=== PATIENT | male | born 1975 | race Caucasian/White ===

== ENCOUNTER 2017-02-11 15:09 | Observation (INO) ==
--- NOTE | 2017-02-11 15:48 | Emergency Department Note ---
Recheck HPI - General Source: patient Mode of arrival: ambulatory Limitations: no limitations <Osiel Cai - Last Filed: 02/11/17 16:11> <Alireza Carrizales - Last Filed: 02/12/17 07:53> - General Chief Complaint: Recheck/Abnormal Lab/Rx Stated Complaint: "I have high potassium" Time Seen by Provider: 02/11/17 15:18 - History of Present Illness HPI Narrative: Patient is 41-year-old male with a history of nephrogenic diabetes insipidus, and history of recurrent hypokalemia secondary to his treatment. He presents today following labs taken by his primary care provider that demonstrated hypokalemia, thrombocytosis, and a high white count. Patient's potassium was 2.6. Patient was advised by his PCP to come to the ER for evaluation and possible admission for correction of his electrolyte derangement. Patient states he was feeling a little tired but otherwise asymptomatic.no fevers chills sweats, patient does admit to having some red blood in his stools this morning, which has been recurrent for him throughout his life prior workups have demonstrated hemorrhoids, patient was encouraged to follow up with his primary care for possible colonoscopy since he is significantly over do. ( Osiel Cai) - Related Data Home Medications Medication Instructions Recorded Confirmed Potassium 40 mg PO DAILY 02/11/17 02/12/17 Spironolactone [Aldactone] 50 mg PO QDAY 02/11/17 02/12/17 Hydrochlorothiazide [Oretic] 2 cap PO DAILY 02/12/17 02/12/17 Previous Rx's Medication Instructions Recorded febuxostat 40 mg tablet 40 mg PO BID #28 tab 01/24/15 Allergies Allergy/AdvReac Type Severity Reaction Status Date / Time duloxetine [From Cymbalta] Allergy Unknown Rash Verified 02/11/17 15:12 aspirin AdvReac Intermediate Verified 02/11/17 15:12 Review of Systems All systems ED: reviewed and negative except as stated. <Osiel Cai - Last Filed: 02/11/17 16:11> Past Medical History - Past Medical History Source: other (patient) Medical history: Reports: other (nephrogenic diabetes insipidus) Surgical history ED: Reports: non-contributory - Social History smoking status: Former smoker Alcohol use: Reports: None Last drink: unknown (2008) Drug use: Reports: cocaine (previous, clean since 2008) <Tl Caih - Last Filed: 02/11/17 16:11> Physical Exam - General Limitations: no limitations General appearance: alert, in no apparent distress, anxious - Head Head exam: atraumatic, normocephalic - Eye Eye exam: Present: normal appearance, PERRL, EOMI - Neck Neck exam: Present: normal inspection, trachea midline - Chest Chest inspection: Present: normal inspection, symmetric chest wall rise. Absent : tenderness - Respiratory Respiratory exam: Present: normal lung sounds bilaterally. Absent: wheezes, stridor, accessory muscle use - Cardiovascular Cardiovascular exam: Present: regular rate, normal rhythm, tachycardia. Absent : systolic murmur, diastolic murmur, rubs, gallop, JVD - Abdominal Exam Abdominal exam: Present: soft, normal bowel sounds. Absent: distention, tenderness, guarding, rebound, rigidity - Rectal Exam Rectal exam: Present: deferred - Skin Skin exam: Present: warm, dry, intact <Osiel Cai - Last Filed: 02/11/17 16:11> Vital Signs Temperature 97.9 F 02/11/17 15:10 Pulse Rate 107 H 02/11/17 15:10 Respiratory Rate 20 02/11/17 15:10 Blood Pressure 170/94 02/11/17 15:10 Pulse Oximetry (%) 98 02/11/17 15:10 Temperature 97.9 F 02/12/17 07:24 Pulse Rate 70 02/12/17 07:24 Respiratory Rate 16 02/12/17 07:24 Blood Pressure 137/99 02/12/17 07:24 Pulse Oximetry (%) 98 02/12/17 07:24 Recheck/Abnormal Lab/Rx - Lab Data Result diagrams: 02/11/17 15:43 <Osiel Cai - Last Filed: 02/11/17 16:11> - Lab Data Result diagrams: 02/12/17 04:20 02/12/17 06:56 <Alireza Carrizales - Last Filed: 02/12/17 07:53> - Lab Data Lab Results 02/11/17 02/11/17 Range/Units 15:43 15:43 WBC 13.9 H (4.5-11.0) K/mcL RBC 4.21 L (4.50-5.90) M/mcL Hgb 12.9 L (13.5-16.5) g/dL Hct 38.0 L (41.0-55.0) % MCV 90.4 (80.0-100.0) fL MCH 30.6 (26.0-34.0) pg MCHC 33.9 (31.0-36.0) g/dL RDW 13.3 (11.5-14.5) % Plt Count 682 H (140-440) K/mcL MPV 6.7 L (7.4-10.4) fL Total Counted 100 Seg Neutrophils % 51 (38-78) % Band Neutrophils % Not Reportable Lymphocytes % 33 (15-49) % Monocytes % (Manual) 12 (1-12) % Eosinophils % (Manual) 4 (0-7) % Platelet Estimate Increased A (NORMAL) RBC Morphology Normal (NORMAL) Sodium 135 (133-145) mmol/L Potassium 2.6 L* (3.3-5.1) mmol/L Chloride 91 L (96-108) mmol/L Carbon Dioxide 28 (22-30) mmol/L Anion Gap 16.0 (8-16) BUN 29 H (6-20) mg/dl Creatinine 1.9 H (0.7-1.2) mg/dl GFR Calculation 42 Glucose 112 H (70-105) mg/dL Calcium 9.0 (8.6-10.4) mg/dl Magnesium 1.4 L (1.6-2.5) mg/dL Total Bilirubin 0.2 (0.0-1.0) mg/dL AST 10 (0-37) U/l ALT 11 (0-40) U/l Alkaline Phosphatase 69 (39-117) U/L Total Protein 6.7 (5.9-8.4) gm/dL Albumin 3.5 (3.2-5.2) gm/dL Globulin 3.2 (2.2-3.7) gm/dL Albumin/Globulin Ratio 1.1 (1.0-2.3) Disposition <Osiel Cai - Last Filed: 02/11/17 16:11> Pt seen by POWER REACTOR SUPERVISOR/PA only: No <Alireza Carrizales - Last Filed: 02/12/17 07:53> Clinical Impression: Hypokalemia, OMAIRA Disposition: Xfer As Outpt/Obs ([facility]) Condition: Fair
[2017-02-11 16:55] LABS: ALT/SGPT 11 U/l (0-40); Albumin 3.5 gm/dL (3.2-5.2); Albumin/Globulin Ratio 1.1 (1.0-2.3); Alkaline Phosphatase 69 U/L (39-117); Blood Urea Nitrogen 29 mg/dl (6-20); Magnesium 1.4 mg/dL (1.6-2.5)
[2017-02-11] MEDS ORDERED: POTASSIUM CHLORIDE 40 MEQ in DEXTROSE 5% IN WATER 500 ML IV ONE (17:22)
--- NOTE | 2017-02-11 17:27 | Emergency Department Note ---
ED Note Addendum Note Addendum: I physically examined this patient and discussed his case with the medical student. He has significant hypokalemia. He will be admitted to the hospital by the hospitalist Dr. Morales who I also spoke with directly.
[2017-02-11] MEDS ORDERED: POTASSIUM CHLORIDE 20 MEQ/10 ML VIAL IV ONE (17:45)
[2017-02-11] MEDS ORDERED: MAGNESIUM SULFATE 2 GM/50 ML BAG IV ONE (18:56)
[2017-02-11] MEDS ORDERED: traZODone HCL 50 MG TABLET PO PRN (18:56)
[2017-02-11] MEDS ORDERED: NALOXONE HCL 0.4 MG/ML VIAL IV PRN (18:56)
[2017-02-11] MEDS ORDERED: MAGNESIUM HYDROXIDE 30 ML ORAL.SUSP PO PRN (18:56)
[2017-02-11] MEDS ORDERED: ONDANSETRON 4 MG/2 ML VIAL IV PRN (18:56)
[2017-02-11] MEDS ORDERED: POTASSIUM CHLORIDE 20 MEQ PACKET PO ONE (18:56)
[2017-02-11] MEDS ORDERED: ACETAMINOPHEN 325 MG TABLET PO PRN (18:56)
--- NOTE | 2017-02-11 19:10 | Internal Med History&Physical ---
Medical - H&P: HPI Patient information: Note initiated : 02/11/17 at 7:04 pm Service Date, if different from initiated Date: [] Patient: Fercho Arciniega 41 y/o M admitted on for "I have high potassium". Chief Complaint: [] History of present illness: Mr. Arciniega is a 41 year old MALE history of congenital nephrogenic diabetes insipidus, chronic hypokalemia presents to the emergency room after being sent thereby his physician for low potassium. The patient's potassium level was 2.6 in the labs they had done. The patient is asymptomatic. The patient's repeat labs in the ER shows that his potassium is 2.6, creatinine of 1.9, magnesium of 1.4. The patient had nonspecific EKG changes. No previous EKGs to compare. He was admitted to the hospital for management of severe hypokalemia. The patient has a history of nephrogenic diabetic insipidus, takes hydrochlorothiazide, takes potassium 40 mEq per day. He notes that last time this blood work was done was a few months ago and his potassium level was low, but okay. He has been dealing with chronically low potassium for a very long time. According to the patient, his electromechanical assembler has stopped his hydrochlorothiazide and started him on Aldactone. He has not yet taken the full stools of Aldactone. He is supposed to see his kidney doctor in a week's time. The patient denies any history of nausea, vomiting, diarrhea, decreased by mouth intake, to explain the sudden drop in potassium. The patient, however, notes that he had a flare up of gout a couple weeks ago and had taken a course of prednisone Prednisone does have kaliuretic properties and this may have exacerbated the patient's hypokalemia. Patient will be admitted to the hospital on telemetry bed for potassium replacement Review of systems: CONSTITUTIONAL: No weight loss, fever, chills, weakness or fatigue. HEENT: Eyes: No visual loss, blurred vision, double vision or yellow sclerae. Ears, Nose, Throat: No hearing loss, sneezing, congestion, runny nose or sore throat. SKIN: No rash or itching. CARDIOVASCULAR: No chest pain, chest pressure or chest discomfort. No palpitations or edema. RESPIRATORY: No shortness of breath, cough or sputum. GASTROINTESTINAL: No nausea, vomiting or diarrhea or constipation. No abdominal pain or blood in stools No Erika. GENITOURINARY: Denies Burning on urination. Blood in urine, or foul smelling urine NEUROLOGICAL: No headache, dizziness, syncope, paralysis, tremors, numbness or tingling in the extremities. No change in bowel or bladder control. MUSCULOSKELETAL: No muscle, back pain, joint pain or stiffness. HEMATOLOGIC: No bleeding or bruising. No enlarged nodes PSYCHIATRIC: No depression or anxiety. ENDOCRINOLOGIC: No reports of sweating, cold or heat intolerance. No polyuria or polydipsia. ALLERGIES: No hives, eczema or rhinitis. Skin: No rash, no jaundice, cyanosis or pallor. . Medical - H&P: [facility] Medical history: Medical History (Last Updated 02/11/17 @ 18:36 by Phyllis Vargas RN) Arthritis of multiple sites (Acute 08/18/14) CKD (chronic kidney disease), stage II (Acute 06/23/14) Chronic low back pain (Acute 08/18/14) Chronic low back pain (Acute) Gout (Acute 06/23/14) Gout (Acute) Hypertension, essential (Acute 10/19/14) Hypokalemia (Acute 01/03/15) Nephrogenic diabetes insipidus (Acute) Numbness and tingling (Acute 11/17/14) Painless hematuria (Acute 10/19/14) Sprain and strain of wrist (Acute) Pertinent family history: significant for nephrogenic diabetes mellitus and his other brother as well as his uncles. He has had workup done for this and it seems based on discussion with the patient as well as his father and the patient has a genetic. Of nephrogenic diabetic insipidus. 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 Medical - H&P: Meds Home Medications Medication Instructions Recorded Confirmed Type febuxostat 40 mg tablet 40 mg PO BID #28 tab 01/24/15 02/11/17 Rx Potassium 20 mg PO BID 02/11/17 02/11/17 History Spironolactone [Aldactone] 50 mg PO QDAY 02/11/17 02/11/17 History Allergies Allergy/AdvReac Type Severity Reaction Status Date / Time duloxetine [From Cymbalta] Allergy Unknown Rash Verified 02/11/17 15:12 aspirin AdvReac Intermediate Verified 02/11/17 15:12 Medical - H&P: Exam - Constitutional Vitals: Temp Pulse Resp BP Pulse Ox 97.9 F 107 H 15 129/94 98 02/11/17 15:10 02/11/17 15:10 02/11/17 18:22 02/11/17 18:02 02/11/17 15:10 Exam: GENERAL: The patient is a well-developed, well-nourished in no apparent distress. Is alert and oriented x3. VITAL SIGNS: Reviewed and as noted elsewhere. HEENT: Head is normocephalic and atraumatic. Extraocular muscles are intact. Pupils are equal, round, and reactive to light. Nares appeared normal. Mouth appears any without lesions. Mucous membranes are moist. NECK: Normal to inspection, Supple, No lymphadenopathy or thyromegaly. LUNGS: Air entry equal on both sides, no wheezing, crackles or rhonchi noted. No accessory muscles of respiration HEART: Regular rate and rhythm normal, S1 and S2 heard, no Gallop, S3 or Rub Noted, No Gross murmur heard. ABDOMEN: Soft, nontender, and nondistended. Positive bowel sounds. No hepatosplenomegaly was noted. EXTREMITIES: No cyanosis, clubbing, rash, lesions or edema. NEUROLOGIC: Cranial nerves II through XII are grossly intact. Motor and Sensory System Grossly Intact PSYCHIATRIC: Normal affect, Normal Mood. Appropriate Behavior. SKIN: No ulceration or wounds noted, No jaundice, No rash noted. Medical - H&P: Reslt - Labs CBC & Chem 7: 02/11/17 15:43 02/11/17 15:43 Labs: BMP 02/11/17 15:43 Sodium 135 Potassium 2.6 L* Chloride 91 L Carbon Dioxide 28 BUN 29 H Creatinine 1.9 H Glucose 112 H Calcium 9.0 Liver Function 02/11/17 Range/Units 15:43 Total Bilirubin 0.2 (0.0-1.0) mg/dL AST 10 (0-37) U/l ALT 11 (0-40) U/l Alkaline Phosphatase 69 (39-117) U/L Albumin 3.5 (3.2-5.2) gm/dL Medical - H&P: A/P - Narrative A/P Narrative: A/P Nephrogenic DI: congenital, follows with electromechanical assembler in [place]. Acute Hypokalemia: K was 2.6, replace IV and oral, give 40IV and 40 oral, monitor on tele for now. NO cardiac symptoms reported Acute Hypomagnesemia: Treat with IV mag sulphate 2gms, check in AM HTN: On Aldactone, started by electromechanical assembler, will start this dose in AM CKD: creat is 1.9, has ckd, slighly worse than baseline, Gout: continue uloric, s/p recent acute flare up. DVT Regular diet Full code.
[2017-02-11 19:11] LABS: Mean Cell Volume 90.4 fL (80.0-100.0); Mean Corpuscular HGB Conc 33.9 g/dL (31.0-36.0); Mean Corpuscular Hemoglobin 30.6 pg (26.0-34.0); Platelet Count 682 K/mcL (140-440); RBC 4.21 M/mcL (4.50-5.90); Red Cell Distribution Width 13.3 % (11.5-14.5)
[2017-02-11 19:51] LABS: Eosinophils % (Manual) 4 % (0-7); Lymphocytes % 33 % (15-49); Monocytes % (Manual) 12 % (1-12); Platelet Estimate INCREASED (NORMAL); RBC Morphology NORMAL (NORMAL); Segmented Neutrophils % 51 % (38-78)
[2017-02-11] MEDS: HYDROcodone/APAP 5/325MG TABLET PO PRN (21:28)
[2017-02-11] MEDS: 0.9 % SODIUM CHLORIDE 10 ML SYRINGE IV SCH (21:29)
[2017-02-11] MEDS: Febuxostat [Uloric] 40 MG PO SCH (21:29)
[2017-02-11] MEDS: 0.9 % SODIUM CHLORIDE 1,000 ML IV SCH (21:47)
[2017-02-11] MEDS ORDERED: PROMETHAZINE 50 MG/ML AMPUL IM ONE (23:24)
[2017-02-11] MEDS ORDERED: HYDROmorphone 2 MG/ML SYRINGE IV PRN (23:24)
[2017-02-11] MEDS ORDERED: HYDROmorphone 2 MG/ML SYRINGE ONE (23:43)
[2017-02-12 03:23] LABS: Appearance,Urine CLEAR; Bacteria,Urine 0 /hpf (0); Bilirubin,Urine NEG (NEG); Color,Urine STRAW; Glucose,Urine (UA) NEGATIVE (NEG); Leukocyte Esterase,Urine NEG /uL (NEG); Mucus,Urine FEW /hpf (0); Nitrate,Urine NEG (NEG); Protein,Urine 100 mg/dL (NEG); Specific Gravity,Urine 1.006 (1.000-1.035); Urine Blood 0.2 mg/dL (<0.03); Urine RBC 5 /hpf (0-1); Urine Squamous Epithelial Cell 0 /hpf (0-4); Urine WBC < 1 /hpf (0-4); Urobilinogen,Urine NEG (NEG)
[2017-02-12 05:39] LABS: Basophils # (Auto) 0 K/mcL (0.0-0.3); Basophils % (Auto) 0.3 % (0.0-2.0); Eosinophils # (Auto) 0.2 K/mcL (0.0-0.7); Granulocytes % (Auto) 75.5 % (38.0-78.0); Lymphocytes # (Auto) 2.6 K/mcL (1.5-4.8); Lymphocytes % (Auto) 16.2 % (15.5-49.0); Mean Cell Volume 90.3 fL (80.0-100.0); Mean Corpuscular HGB Conc 34.2 g/dL (31.0-36.0); Mean Corpuscular Hemoglobin 30.9 pg (26.0-34.0); Monocytes # (Auto) 1.1 K/mcL (0.1-0.9); Platelet Count 591 K/mcL (140-440); RBC 3.86 M/mcL (4.50-5.90); Red Cell Distribution Width 13.1 % (11.5-14.5)
[2017-02-12] MEDS ORDERED: HYDROmorphone 2 MG/ML SYRINGE ONE (05:59)
[2017-02-12] MEDS: 0.9 % SODIUM CHLORIDE 10 ML SYRINGE IV SCH ×2 (06:01→14:45)
[2017-02-12] MEDS: 0.9 % SODIUM CHLORIDE 1,000 ML IV SCH ×2 (06:01→16:39)
[2017-02-12 07:51] LABS: ALT/SGPT 8 U/l (0-40); Albumin 3.2 gm/dL (3.2-5.2); Albumin/Globulin Ratio 1.1 (1.0-2.3); Alkaline Phosphatase 60 U/L (39-117); Bilirubin,Direct < 0.2 mg/dL (0.0-0.3); Blood Urea Nitrogen 27 mg/dl (6-20); Gamma Glutamyl Transpeptidase 39 U/L (8-61); Magnesium 1.8 mg/dL (1.6-2.5); Uric Acid 6.7 mg/dL (2.5-8.0)
[2017-02-12] MEDS ORDERED: MAGNESIUM SULFATE 2 GM/50 ML BAG IV ONE (08:01)
[2017-02-12] MEDS ORDERED: POTASSIUM CHLORIDE 20 MEQ PACKET PO ONE (08:01)
[2017-02-12] MEDS: Febuxostat [Uloric] 40 MG PO SCH (08:48)
[2017-02-12] MEDS: HYDROcodone/APAP 5/325MG TABLET PO PRN (08:55)
[2017-02-12] MEDS ORDERED: SPIRONOLACTONE 25 MG TABLET PO SCH (09:00)
--- NOTE | 2017-02-12 12:53 | Cat Scan Report ---
CLINICAL INFORMATION: Right flank pain COMPARISON: None. TECHNIQUE: 2.5 mm helical slices were obtained from the mid heart through the subtrochanteric regions. Following reconstruction, 2.5 mm sagittal, coronal and axial reformatted images were processed and reviewed at bone, lung and soft tissue windows. FINDINGS: There is atrophy of the right kidney: 8.1 x 5.2 cm with compensatory hypertrophy of the left kidney: 13 x 5.5 cm. There is scattered cortical scarring seen in the right kidney. There are no evidence of stone or hydronephrosis. Lung bases show no abnormality - no effusion. Visualized heart is normal. Images should the abdomen show the noncontrasted gallbladder and bile ducts, liver, both adrenal glands, spleen, pancreas and aorta to be normal in size, configuration and attenuation without focal lesion. Sigmoid diverticulosis is noted, but the remainder of the colon appendix small bowel stomach are grossly normal. There is no free air, free fluid and no adenopathy. Images should the pelvis show moderate distention of urinary bladder. Bone windows show no osseous abnormality IMPRESSION: 1. No evidence of stone or hydronephrosis. 2. Atrophy of the right kidney with scattered parenchymal scarring. Mild compensatory hypertrophy left kidney. Interpreted and Authenticated by: Everett Reynaga 02/12/17
[2017-02-12 13:36] LABS: Blood Urea Nitrogen 25 mg/dl (6-20)
[2017-02-12] MEDS ORDERED: POTASSIUM CHLORIDE 20 MEQ TABLET PO ONE ×2 (13:37→13:45)
[2017-02-12] MEDS ORDERED: LIDOCAINE 5% OINT TUBE 35GM TOPICAL ONE (13:45)
[2017-02-12] MEDS ORDERED: POTASSIUM CHLORIDE 20 MEQ TABLET PO SCH (17:30)
--- NOTE | 2017-02-12 19:21 | Discharge Summary ---
Medical - DS: Prov Patient information: Note initiated : 02/12/17 at 7:18 pm Service Date, if different from initiated Date: [] Patient: Fercho Arciniega 41 y/o M admitted on 02/11/17 for "I have high potassium "/Hypokalemia, OMAIRA. Chief Complaint: [] Date of admission: 02/11/17 18:33 Discharge date: 02/12/17 Primary care physician: Dorian Sampson Admitting clinician: Papo Morales Discharging clinician: Papo Morales Medical - DS: Meds - Discharge Medications Prescriptions: Lidocaine 5% Oint 1 dose TOPICAL TID #1 tube Potassium Chloride [Kdur] 40 meq PO BIDCC #40 tablet Active and Home Medications: Home Medications febuxostat 40 mg tablet 40 mg PO BID #28 tab 01/24/15 [Rx Confirmed 02/12/17 Last Taken 02/11/17 40 mg] Potassium 40 mg PO DAILY 02/11/17 [History Confirmed 02/12/17 Last Taken 40 mEq] Spironolactone [Aldactone] 50 mg PO QDAY 02/11/17 [History Confirmed 02/12/17 Last Taken Unknown] Hydrochlorothiazide [Oretic] 2 cap PO DAILY 02/12/17 [History Confirmed Last Taken Unknown] Medical - DS: Hosp Hospital course: Mr. Arciniega is a 41 year old Male with congenital nephrogenic diabetes insipidus, presented to the ER after being ent here for low potassium. His potassium was 2.6, he had no other complaints. He had no weakness, no palpitations, no dizziness. His EKG was unremarkable, he was admitted for management of acute hypokalemia. Hypokalemia-patient has chronic hyperkalemia issues. on reviewing his chart He' s always had potassium around 3 he had recently taken a dose of prednisone for management of acute gout. He was also on hydrochlorothiazide for management of his diabetes insipidus. His fire observer has stopped his hydrochlorothiazide and the patient was supposed to be started on spironolactone. The patient was aggressively treated with IV and oral potassium. His medications for diuretics changed from hydrochlorothiazide to Aldactone while in the hospital. His potassium was 3.0 at the time of discharge. The patient has been advised to take increased dose of potassium. He will take 40 mEq twice a day and he has a follow-up with his nephrologistin 6 days. He has been advised to check his potassium level at the end of high to 6 days. Acute on chronic renal failure-etiology uncertain, likely decreased by mouth intake. Creatinine was 1.9 on presentation. At discharge it is 1.5, which is near his baseline. The patient had back pain while in the hospital, has been a chronic issue for him, he has been prescribed a lidocaine ointment daily to the back pain. Advised to follow with PCP for further management. CT scan of the abdomen and pelvis done without contrast did not reveal any renal stones. Discharge diagnosis: hypokalemia, acute on chr renal failure. - Time Spent with Patient Total time spent providing and/or coordinating discharge services: Medical - DS: Exam - Constitutional Vitals: Vital Signs Temp Pulse Resp BP BP BP Pulse Ox 02/12/17 16:00 98.6 F 70 18 128/87 96 02/12/17 12:00 97.7 F 71 18 117/81 98 02/12/17 07:24 97.9 F 70 16 137/99 98 02/12/17 04:00 98.7 F 18 125/85 96 02/12/17 00:32 18 135/94 02/12/17 00:00 18 135/94 96 02/11/17 22:13 98.8 F 02/11/17 20:00 98.8 F 18 130/94 98 Intake and Output 02/12/17 02/12/17 02/12/17 05:59 13:59 21:59 Intake Total 1999 1303 / 1303 Output Total 350 / 350 Balance 1650 / 1650 1303 / 1303 Intake: IV 823 / 823 Sodium Chloride 0.9% 1, 823 / 823 000 ml @ 100 mls/hr IV . Q10H [facility] Rx#:[id number] Oral 480 / 480 GI Tube Flush 1999 Output: Void Amount 350 / 350 Other: Meal Breakfast Percent of Meal Consumed 100% Feeding Ability Independent # Voids 2 1 1 Additional comments: Constitutional; Afebrile, cooperative, alert, not in distress. Eyes- No icterus, , No periorbital swelling Ears- Ext ear normal, hearing normal to conversation. Neck- Midline trachea, supple Respiratory system: Air Entry equal on both sides, No crackles or wheezing, no rhonchi. CVS- Rate rhythm regular, S1,S2 heard, no gallop, no rub. Abdomen- Soft nontender abdomen, no organomegaly, no tenderness, no guarding or rigidity, PLAY LEADER- AOOx3, moving all extremities, no gross focal deficit noted. Medical - DS: Data Labs on day of discharge: Labs from last 24 hours 02/12/17 02/12/17 02/12/17 18:57 16:50 12:38 WBC RBC Hgb Hct POC Hct 39.0 L MCV MCH MCHC RDW Plt Count MPV Gran % Lymph % (Auto) [place] % (Auto) Eos % (Auto) Baso % (Auto) Gran # Lymph # (Auto) [place] # (Auto) Eos # (Auto) Baso # (Auto) Smear Path Review POC Sodium 137 Sodium Not Reportable 134 POC Potassium 3.0 L Potassium Not Reportable 2.9 L* POC Chloride 99 Chloride Not Reportable 94 L Carbon Dioxide Not Reportable 27 POC Total CO2 24 Anion Gap Not Reportable 13.0 POC BUN 22 H BUN Not Reportable 25 H Creatinine Not Reportable 1.5 H POC Creatinine 1.5 H GFR Calculation Not Reportable 56 Glucose TNP 133 H POC Glucose 194 H Uric Acid Calcium Not Reportable 8.7 POC WB Ioniz Calcium 1.22 Phosphorus Magnesium Total Bilirubin Direct Bilirubin GGT AST ALT Alkaline Phosphatase Lactate Dehydrogenase Total Protein Albumin Globulin Albumin/Globulin Ratio Triglycerides Urine Color Urine Appearance Urine pH Ur Specific [place] Urine Protein Urine Glucose (UA) Urine Ketones Urine Occult Blood Urine Nitrate Urine Bilirubin Urine Urobilinogen Ur Leukocyte Esterase Urine RBC Urine WBC Ur Squamous Epith Cells Urine Bacteria Urine Mucus Ur Culture Indicated? 02/12/17 02/12/17 02/12/17 06:56 04:20 04:20 WBC RBC Hgb Hct POC Hct MCV MCH MCHC RDW Plt Count MPV Gran % Lymph % (Auto) [place] % (Auto) Eos % (Auto) Baso % (Auto) Gran # Lymph # (Auto) [place] # (Auto) Eos # (Auto) Baso # (Auto) Smear Path Review POC Sodium Sodium TNP 133 POC Potassium Potassium TNP 3.0 L POC Chloride Chloride TNP 94 L Carbon Dioxide TNP 29 POC Total CO2 Anion Gap TNP 10.0 POC BUN BUN TNP 27 H Creatinine TNP 1.4 H POC Creatinine GFR Calculation TNP 61 Glucose TNP 112 H POC Glucose Uric Acid 6.7 Calcium TNP 8.6 POC WB Ioniz Calcium Phosphorus 3.2 Magnesium 1.8 Total Bilirubin 0.2 Direct Bilirubin < 0.2 GGT 39 AST 6 ALT 8 Alkaline Phosphatase 60 Lactate Dehydrogenase 136 Total Protein 6.0 Albumin 3.2 Globulin 2.8 Albumin/Globulin Ratio 1.1 Triglycerides 251 H Urine Color Urine Appearance Urine pH Ur Specific [place] Urine Protein Urine Glucose (UA) Urine Ketones Urine Occult Blood Urine Nitrate Urine Bilirubin Urine Urobilinogen Ur Leukocyte Esterase Urine RBC Urine WBC Ur Squamous Epith Cells Urine Bacteria Urine Mucus Ur Culture Indicated? 02/12/17 02/12/17 04:20 02:44 WBC 16.0 H RBC 3.86 L Hgb 11.9 L Hct 34.9 L POC Hct MCV 90.3 MCH 30.9 MCHC 34.2 RDW 13.1 Plt Count 591 H MPV 6.8 L Gran % 75.5 Lymph % (Auto) 16.2 [place] % (Auto) 7.0 Eos % (Auto) 1.0 Baso % (Auto) 0.3 Gran # 12.1 H Lymph # (Auto) 2.6 [place] # (Auto) 1.1 H Eos # (Auto) 0.2 Baso # (Auto) 0 Smear Path Review POC Sodium Sodium POC Potassium Potassium POC Chloride Chloride Carbon Dioxide POC Total CO2 Anion Gap POC BUN BUN Creatinine POC Creatinine GFR Calculation Glucose POC Glucose Uric Acid Calcium POC WB Ioniz Calcium Phosphorus Magnesium Total Bilirubin Direct Bilirubin GGT AST ALT Alkaline Phosphatase Lactate Dehydrogenase Total Protein Albumin Globulin Albumin/Globulin Ratio Triglycerides Urine Color Straw Urine Appearance Clear Urine pH 6.0 Ur Specific [place] 1.006 Urine Protein 100 A Urine Glucose (UA) Negative Urine Ketones Neg Urine Occult Blood 0.2 A Urine Nitrate Neg Urine Bilirubin Neg Urine Urobilinogen Neg Ur Leukocyte Esterase Neg Urine RBC 5 H Urine WBC < 1 Ur Squamous Epith Cells 0 Urine Bacteria 0 Urine Mucus Few Ur Culture Indicated? No Medical - DS: A/P - Patient/Caregiver Discharge Instructions Activity: increase activity as tolerated Diet: Regular Diet Additional Instructions: High K diet Check your potassium with your kidney doctor in 6 days Go to ER if worsening symptoms Follow up with Your PCP for back pain and other medical issues. - Follow up Plan Follow up with: Dorian Sampson [Primary Care Provider] - 02/16/17 1:30 pm Vidal Walters [Referring] - Disposition: Home, Self-Care Prognosis: Fair Rehab Potential: Fair I certify that the patient requires SNF services: No Overall status at discharge: patient is progressing back to baseline Medical - DS: Qual - VTE Deep Vein Thrombosis/Pulmonary Embolism Present on Admission: No
== END 2017-02-12 19:45 | disposition home or self-care (01) ==
LOC: ED 15:09 → ICU 15:09
PROVIDERS: ADMIT Internal Medicine; ATTEND Internal Medicine